=== PATIENT | male | born 1965 | race Hispanic/Latino ===

== ENCOUNTER 2019-11-28 10:06 | Outpatient (CLI) | payer OTHER, SELFPAY ==
--- NOTE | 2019-11-28 11:00 | NEURO_ITS ---
Patient Number: [id number] Impression: # Complains of pain and numbness of hands. # Bilateral Carpal Tunnel Syndrome, right more than left. # Subtle evolving left ulnar neuropathy around the elbow. # Normal needle/EMG exam. Nerve Conduction Studies Anti Sensory Summary Table Stim Site NR Peak (ms) P-T Amp (?V) Site1 Site2 Delta-P (ms) Dist (cm) Leo (m/s) Left Median Anti Sensory (2-3nd Digit) Wrist 3.8 57.8 Wrist 2-3nd Digit 3.8 14.0 37 Wrist 4.1 52.9 Wrist 2-3nd Digit 3.8 14.0 37 Right Median Anti Sensory (2-3nd Digit) Wrist 4.0 45.5 Wrist 2-3nd Digit 4.0 14.0 35 Wrist 4.3 75.8 Wrist 2-3nd Digit 4.0 14.0 35 Left Radial Anti Sensory (Base 1st Digit) Wrist 2.1 34.2 Wrist Base 1st Digit 2.1 0.0 Right Radial Anti Sensory (Base 1st Digit) Wrist 2.7 20.8 Wrist Base 1st Digit 2.7 0.0 Left Ulnar Anti Sensory (5th Digit) Wrist 3.4 49.0 Wrist 5th Digit 3.4 14.0 41 Right Ulnar Anti Sensory (5th Digit) Wrist 3.5 58.2 Wrist 5th Digit 3.5 14.0 40 Motor Summary Table Stim Site NR Onset (ms) O-P Amp (mV) Site1 Site2 Delta-0 (ms) Dist (cm) Leo (m/s) Left Median Motor (Abd Poll Brev) Wrist 4.8 2.3 Elbow Wrist 4.6 27.0 59 Elbow 9.4 3.9 Right Median Motor (Abd Poll Brev) Wrist 4.2 7.5 Elbow Wrist 5.0 27.0 54 Elbow 9.2 4.3 Left Ulnar Motor (Abd Dig Minimi) Wrist 3.1 8.0 A Elbow Wrist 5.8 30.0 52 A Elbow 8.9 7.3 B Elbow Wrist 4.1 23.0 56 B Elbow 7.2 6.5 Right Ulnar Motor (Abd Dig Minimi) Wrist 3.2 6.2 A Elbow Wrist 5.1 29.0 57 A Elbow 8.3 6.1 F Wave Studies NR F-Lat (ms) L-R F-Lat (ms) Left Median (Mrkrs) (Abd Poll Brev) 30.12 0.29 Right Median (Mrkrs) (Abd Poll Brev) 30.41 0.29 Left Ulnar (Mrkrs) (Abd Dig Min) 28.13 0.00 Right Ulnar (Mrkrs) (Abd Dig Min) 28.13 0.00 EMG Side Muscle Nerve Root Ins Act Fibs Amp Dur Recrt Comment Right 1stDorInt Ulnar C8-T1 Nml Nml Nml Nml Nml Right Ext Indicis Radial (Post Int) C7-8 Nml Nml Nml Nml Nml Right Ext Digitorum Radial (Post Int) C7-8 Nml Nml Nml Nml Nml Right BrachioRad Radial C5-6 Nml Nml Nml Nml Nml Right PronatorTeres Median C6-7 Nml Nml Nml Nml Nml Right Abd Poll Brev Median C8-T1 Nml Nml Nml Nml Nml Left 1stDorInt Ulnar C8-T1 Nml Nml Nml Nml Nml Left Ext Indicis Radial (Post Int) C7-8 Nml Nml Nml Nml Nml Left Ext Digitorum Radial (Post Int) C7-8 Nml Nml Nml Nml Nml Left BrachioRad Radial C5-6 Nml Nml Nml Nml Nml Left PronatorTeres Median C6-7 Nml Nml Nml Nml Nml Left Abd Poll Brev Median C8-T1 Nml Nml Nml Nml Nml Right ABD Dig Min Ulnar C8-T1 Nml Nml Nml Nml Nml Left ABD Dig Min Ulnar C8-T1 Nml Nml Nml Nml Nml MTDD
== END 2019-11-28 10:07 | disposition home or self-care (01) ==
PROVIDERS: PCP Family Medicine; Visit Provider Family Medicine
DX: G56.03 Carpal tunnel syndrome, bilateral upper limbs (principal); G56.22 Lesion of ulnar nerve, left upper limb
CPT/HCPCS: 95886; 95911

== ENCOUNTER 2020-04-02 02:03 | Outpatient (CLI) | payer OTHER, SELFPAY ==
[2020-04-02 19:16] LABS: SARS-CoV-2 RNA PCR Negative
== END 2020-04-02 02:04 | disposition home or self-care (01) ==
LOC: ANHCOVIDDT 02:04
PROVIDERS: PCP Family Medicine; Visit Provider Plastic Surgery
DX: Z01.818 Encounter for other preprocedural examination (principal); Z11.59 Encounter for screening for other viral diseases
CPT/HCPCS: 87635; C9803; U0003

== ENCOUNTER 2020-04-04 02:15 | Day surgery (SDC) | payer OTHER, SELFPAY ==
[2020-04-01 15:52] VITALS: BMI 23.3
--- NOTE | 2020-04-04 08:17 | P.HP_ITS ---
H&P: HPI History of Present Illness Chief complaint: Carpal Tunnel Syndrome Narrative: Deirdre Del Rosario is a 55 year old male with B CTS. Dx supported with a NCV within the past year. Review of Systems Constitutional: Constitutional: Reports no additional constitutional complaints ENT: Reports system reviewed and no additional complaints, except as documented Cardiovascular: Cardiovascular: Reports no additional cardiovascular complaints Respiratory: Respiratory: Reports dyspnea on exertion Comments: 30py smoker. Stopped recently. Gastrointestinal: Gastrointestinal: Reports no additional gastrointestinal complaints Musculoskeletal: Musculoskeletal: Reports numbness, Reports radiating pain into limb, Reports stiffness and Reports tingling Integumentary/Breasts: Skin/Breast: Reports system reviewed and no additional complaints, except as docu Neurologic: Reports weakness Allergic/Immunologic: Comments: Allergy to PCN [facility] [place] Social History Social History Smoking packs per day: 1 Smoking cigarettes per day: 20.0 Years smoked: 30 Smoking pack-years: 30.00 Smoking status: Former smoker Tobacco type: cigarettes Additional smoking assessment comments: QUIT SEP 2019 Substance use type: marijuana Last use: 03/31/20 Spiritual care concerns: No Meds Home Medications and Allergies Home Medications Medication Instructions Recorded Confirmed Type albuterol sulfate 90 mcg/actuation 2 puff INHALATION Q4H PRN gm 08/08/19 04/01/20 History aerosol inhaler mirtazapine 7.5 mg tablet 7.5 mg PO HS PRN 08/08/19 04/01/20 History naproxen 500 mg tablet,delayed 500 mg PO BID #60 tablet 01/29/20 04/01/20 Rx release lisinopril 20 mg PO QPM 04/01/20 04/01/20 History sertraline 50 mg PO QPM 04/01/20 04/01/20 History Allergies Allergy/AdvReac Type Severity Reaction Status Date / Time Penicillins Allergy Unknown UNKNOWN- Verified 04/01/20 15:50 OCCURED INFANT Exam Extrem: Other: Difficulty with thumb pronation . Pos. Tinel's sign and Phalen's sign. Assessment and Plan Assessment and plan (1) Carpal tunnel syndrome: Qualifiers: Laterality: bilateral Qualified Code(s): G56.03 - Carpal tunnel syndrome, bilateral upper limbs Code(s): G56.00 - Carpal tunnel syndrome, unspecified upper limb Status: Acute Assessment and Plan: R OCTR today.
[2020-04-04 11:23] VITALS: BP 105/70; PULSE 70; RESP 16; TEMP 36.4; O2SAT 100
--- NOTE | 2020-04-04 12:19 | WPDHPUPDATE1 ---
History and Physical Update Update Date/Time: 04/04/20 12:19 History and Physical has been reviewed, including an updated exam of the patient. There are NO changes in the patient's condition. Risks, benefits, and alternatives have been discussed and questions answered. Patient agrees to proceed with procedure.
[2020-04-04 12:45] VITALS: BP 141/64; PULSE 57; RESP 16; O2SAT 97
--- NOTE | 2020-04-04 12:48 | PM.OP ---
Procedure Note - Brief Procedure Note - Brief Date of procedure: 04/04/20 Pre-op diagnosis: Carpal Tunnel Syndrome Post-op diagnosis: same Procedure performed: R OCTR Anesthesia: local Surgeon: Camilo Payan MD Estimated blood loss (mL): 0 Tourniquet time (min): 0 Drains: No Packing: No Pathology: none sent Complications: No immediate complications Condition: stable Disposition: same day
[2020-04-04 12:55] VITALS: BP 140/66; PULSE 50; RESP 16; O2SAT 98
[2020-04-04] MEDS: LIDO 1%/EPINEPHRINE 1:100,000 20 ML VIAL 10 ML INFILTRATE (12:57)
[2020-04-04] MEDS: BACITRACIN OINTMENT 15 GM TUBE 1 APPLIC TOPICAL (12:57)
[2020-04-04 13:00] VITALS: BP 113/57; PULSE 53; RESP 16; O2SAT 98
[2020-04-04 13:06] VITALS: BP 161/67; PULSE 55
--- NOTE | 2020-04-04 14:39 | PM.PROC ---
Procedure Note - Detailed Date of procedure: 04/04/20 Pre-op diagnosis: Carpal Tunnel Syndrome Post-op diagnosis: same Procedure performed: Right open carpal tunnel release. Description of procedure: The patient was greeted in the operating room, he is scheduled under local anesthetic in no marking had been placed on his right wrist. He was alert and agreed to do the right side. A time-out was held and confirmed. The extremity was prepped and draped in the usual fashion. A marking was placed on the palm to guide the incision, this area was locally in filtrated with 1% lidocaine with epinephrine . Some time was allowed for hemostatic effect. No tourniquet was utilized. The incision was made in the palm as marked. Dissection was carried bluntly through the subcutaneous tissue to the palmar fascia. This and the carpal ligament were incised with a 15. Bard-Gabriel blade opening the canal. With 3 point retraction the ligament was visualized and divided distally and proximally to completely release it. No unusual anatomy was noted. The wound was closed with interrupted 4-0 nylon suture. There was minimal blood loss. The patient is discharged with instructions in wound care and follow-up. The prescription for hydrocodone 5/325 was sent to his pharmacy Surgeon: Camilo Payan MD
== END 2020-04-04 13:25 | disposition home or self-care (01) ==
PROVIDERS: PCP Family Medicine; Visit Provider Plastic Surgery
PROC: (CPT 64721; principal; 2020-04-04 11:45)
DX: G56.01 Carpal tunnel syndrome, right upper limb (principal); Z87.891 Personal history of nicotine dependence
CPT/HCPCS: 64721; A9270

== ENCOUNTER 2020-04-29 01:24 | Outpatient (CLI) | payer OTHER, SELFPAY ==
[2020-04-29 16:16] LABS: SARS-CoV-2 RNA PCR Negative
== END 2020-04-29 01:25 | disposition home or self-care (01) ==
LOC: ANHCOVIDDT 01:25
PROVIDERS: PCP Family Medicine; Visit Provider Plastic Surgery
DX: Z01.812 Encounter for preprocedural laboratory examination (principal); Z11.59 Encounter for screening for other viral diseases
CPT/HCPCS: 87635; C9803; U0003

== ENCOUNTER 2020-05-01 01:11 | Day surgery (SDC) | payer OTHER, SELFPAY ==
[2020-04-17 16:01] VITALS: BMI 23.3
--- NOTE | 2020-04-30 21:14 | HP_ITS ---
DATE OF SERVICE: 05/01/2020 DIAGNOSES: Left carpal tunnel syndrome and evolving left ulnar neuropathy at the elbow. HISTORY: The patient underwent right open carpal tunnel release at [facility] on 04/04/2020. The diagnosis was supported by a nerve conduction test from 11/28/2019, indicating bilateral carpal tunnel syndrome and evolving left ulnar neuropathy at the elbow. ALLERGIES: INDICATES AN ALLERGY TO PENICILLIN. CURRENT MEDICATIONS: Includes albuterol, mirtazapine, naproxen, lisinopril, and sertraline. PAST SURGICAL HISTORY: He has had several surgeries including multiple surgeries on his lower extremities. 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 There is no documented cardiac history. He quit smoking in September of 2019. REVIEW OF SYSTEMS: Indicates arthritis, emphysema, dry eye, hearing loss, and numbness associated with his current complaint. SOCIAL HISTORY: He lives in [place]. He does not list employment. He is to [employer]. He is a patient of Ganesh Ceron. PHYSICAL EXAMINATION: GENERAL: He is alert and cooperative, appearing his stated age. He is 5 feet 5 inches, weighs 140 pounds, no acute distress. HEENT: Unremarkable. CHEST: Clear to auscultation. HEART: Regular rate and rhythm by palpation. ABDOMEN: Soft, nontender. EXTREMITIES: Exam reveals multiple positives including thenar tenderness, trouble flexing his thumb, Tinel's at the wrist, provocative pain in the forearm, Tinel's at the elbow. Wrist compression is positive. ASSESSMENT: Left carpal tunnel syndrome. PLAN: Left open carpal tunnel release under local anesthetic. D I MT: Marium
[2020-05-01 09:12] VITALS: BP 116/60; PULSE 77; RESP 18; TEMP 37.7; O2SAT 100
--- NOTE | 2020-05-01 10:46 | WPDHPUPDATE1 ---
History and Physical Update Update Date/Time: 05/01/20 10:46 History and Physical has been reviewed, including an updated exam of the patient. There are NO changes in the patient's condition. Risks, benefits, and alternatives have been discussed and questions answered. Patient agrees to proceed with procedure.
--- NOTE | 2020-05-01 11:14 | PM.OP ---
Procedure Note - Brief Procedure Note - Brief Date of procedure: 05/01/20 Pre-op diagnosis: Left Carpal Tunnel Syndrome Post-op diagnosis: same Procedure performed: L OCTR Anesthesia: local Surgeon: Camilo Payan MD Estimated blood loss (mL): 2 Drains: No Packing: No Pathology: none sent Complications: No immediate complications Condition: stable Disposition: same day
[2020-05-01 11:15] VITALS: BP 142/86; PULSE 68; RESP 16; O2SAT 100
[2020-05-01 11:25] VITALS: BP 135/55; PULSE 57; RESP 16; O2SAT 100
[2020-05-01] MEDS: LIDO 1%/EPINEPHRINE 1:100,000 20 ML VIAL INFILTRATE (11:26)
[2020-05-01 11:33] VITALS: BP 127/78; PULSE 60; RESP 16; O2SAT 100
[2020-05-01 11:41] VITALS: BP 145/69; PULSE 56; RESP 16
--- NOTE | 2020-05-01 11:45 | PM.PROC ---
Procedure Note - Detailed Date of procedure: 05/01/20 Pre-op diagnosis: Left Carpal Tunnel Syndrome Post-op diagnosis: same Procedure performed: Left open carpal tunnel release Description of procedure: the left wrist was marked in the holding. The patient was taken to the operating room where he was placed supine on the operating table a time-out was held and confirmed. The left extremity was prepped and draped in the usual fashion. The site was locally infiltrated with 1% lidocaine with epinephrine. A total of 10 cc was used eventually the neck is. No tourniquet was utilized. The incision was made in the palm and carried bluntly passed the subcutaneous tissue to the palmar fascia. This and the carpal ligament were incised with a 15. Blade open the canal. Under 3 point retraction the ligament was visualized and divided distally and proximally to completely release it. No unusual anatomy was noted. The wound was closed with interrupted 4-0 nylon suture. The usual bandage was applied NE is discharged from the operating room in stable condition. He is discharged with instructions in wound care and follow-up he has a prescription for hydrocodone 01/27/2025 16. He requested this number because that number was required during his recent last procedure. He tolerated that well without complications. Anesthesia: local Surgeon: Camilo Payan MD
[2020-05-01 12:11] VITALS: BP 152/72; PULSE 50; RESP 16
== END 2020-05-01 12:20 | disposition home or self-care (01) ==
PROVIDERS: PCP Family Medicine; Visit Provider Plastic Surgery
PROC: (CPT 64721; principal; 2020-05-01 10:00)
DX: G56.02 Carpal tunnel syndrome, left upper limb (principal); J44.9 Chronic obstructive pulmonary disease, unspecified; Z87.891 Personal history of nicotine dependence
CPT/HCPCS: 64721; A9270

== ENCOUNTER 2020-09-05 09:35 | Outpatient (CLI) | payer OTHER, SELFPAY ==
--- NOTE | 2020-09-05 09:37 | ECG_ITS ---
Measurements Intervals [place] Rate: 71 P: 68 OH: 164 QRS: 15 QRSD: 105 T: -4 QT: 378 QTc: 412 Interpretive Statements SINUS RHYTHM VENTRICULAR BIGEMINY BORDERLINE R WAVE PROGRESSION, ANTERIOR LEADS BORDERLINE T WAVE ABNORMALITY- INFERIOR LEADS ABNORMAL ECG Electronically Signed On 09-05-2020 10:31:03 ANALYTICAL CLERK by Brendan Yang D.O.
== END 2020-09-05 09:36 | disposition home or self-care (01) ==
PROVIDERS: PCP Family Medicine; Visit Provider Surgery
DX: Z01.818 Encounter for other preprocedural examination (principal); K40.90 Unilateral inguinal hernia, without obstruction or gangrene, not specified as recurrent; I10 Essential (primary) hypertension; R94.31 Abnormal electrocardiogram [ECG] [EKG]
CPT/HCPCS: 36415; 86850; 86900; 86901; 93005

== ENCOUNTER 2020-09-07 00:51 | Outpatient (CLI) | payer OTHER, SELFPAY ==
[2020-09-07 20:16] LABS: SARS-CoV-2 RNA PCR Negative
== END 2020-09-07 00:52 | disposition home or self-care (01) ==
LOC: ANHCOVIDDT 00:51
PROVIDERS: PCP Family Medicine; Visit Provider Surgery
DX: Z01.818 Encounter for other preprocedural examination (principal); Z20.828 Contact with and (suspected) exposure to other viral communicable diseases
CPT/HCPCS: 87635; C9803; U0003

== ENCOUNTER 2020-09-11 00:42 | Day surgery (SDC) | payer OTHER, SELFPAY ==
[2020-09-04 11:11] VITALS: BMI 24.1
--- NOTE | 2020-09-10 14:02 | WPDANESEPPF ---
Anes - Initial Pre Proc Eval Procedure: Operation Date: 09/11/20 13:00 Proposed Procedures p Robotic Assisted Laparoscopic Right Inguinal Hernia Repair with Mesh - Naye Bowden MD Date/Time: 09/10/20 14:02 Surgeon: Naye Bowden MD Pre Op Diagnosis: right inguinal hernia Patient Data Age: 55 Gender: M Height: 1.65 m Weight: 65.77 kg Allergies Allergy/AdvReac Type Severity Reaction Status Date / Time Penicillins Allergy Unknown UNKNOWN- Verified 09/04/20 10:53 OCCURED Home Medications Medication Instructions Recorded Confirmed Type mirtazapine 7.5 mg tablet 7.5 mg PO HS PRN 08/08/19 09/11/20 History lisinopril 20 mg PO QPM 04/01/20 09/11/20 History albuterol sulfate 90 mcg/actuation 2 puff INHALATION Q4H PRN #8.5 gm 05/01/20 09/11/20 Rx aerosol inhaler sertraline 50 mg tablet 50 mg PO QPM #90 tablet 07/15/20 09/11/20 Rx naproxen [EC-Naprosyn] 500 mg PO BID PRN 09/04/20 09/11/20 History Patient hx anesthesia problems: none Family hx anesthesia problems: none [facility] Past Medical History Medical History (Updated 08/19/20 @ 14:24 by Bianca Person) Carpal tunnel syndrome surgery on the R today. 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 Chronic obstructive pulmonary disease Hypertension Osteoarthritis of right knee Surgical History Surgical History H/O carpal tunnel repair Family History Family History Father Heart disease Social History Social History (Updated 08/19/20 @ 13:59 by Jessica Morrison CMA) Smoking packs per day: 1 Smoking cigarettes per day: 20.0 Years smoked: 30 Smoking pack-years: 30.00 Smoking status: Current every day smoker Tobacco type: cigarettes Substance use: current Substance use type: marijuana Last use: 03/31/20 Living arrangements: with family Spiritual care concerns: No Anes - Eval Final PreProcedure Day of Procedure 09/10/20 14:02 Patient weight: normal Heart: regular rate and rhythm Lungs: clear to auscultation and normal air movement Airway: Mallampati scale class II Neurological: alert and oriented Last oral intake: >/= 8 hours ASA classification: III Emergent: no Anesthetic plan: proceed Anesthesia type and monitoring: general ETT and standard monitoring Informed Consent: The patient's anesthetic plan and its attendant risks and benefits were discussed with the patient/family/POA. Questions were solicited and answers provided to the satisfaction of the patient/family/POA.
[2020-09-11] VITALS (7 sets, daily range): BP systolic 113–161; BP diastolic 51–96; PULSE 50–80; RESP 12–16; TEMP 36.1–36.3; O2SAT 94–100
[2020-09-11] MEDS: ACETAMINOPHEN 500 MG TABLET 1000 MG PO (11:36)
[2020-09-11] MEDS: LACTATED RINGERS 1,000 ML 30 ML IV CONT ×3 (12:04→15:36)
[2020-09-11] MEDS: KETOROLAC 15 MG/ML VIAL (*BKC) IV PUSH (12:09)
--- NOTE | 2020-09-11 12:25 | WPDHPUPDATE1 ---
History and Physical Update Update Date/Time: 09/11/20 12:25 History and Physical has been reviewed, including an updated exam of the patient. There are NO changes in the patient's condition. Risks, benefits, and alternatives have been discussed and questions answered. Patient agrees to proceed with procedure.
--- NOTE | 2020-09-11 13:08 | SUR.PREOP ---
pt informed delay of procedure possibly one hour.
[2020-09-11] MEDS: ceFAZolin 2 GM/D5W 50 ML 2 GM/50 ML BAG IVPB (14:06)
[2020-09-11] MEDS: BUPIVACAINE/EPINEPHRINE 0.25% 10 ML VIAL 30 ML INFILTRATE (14:29)
--- NOTE | 2020-09-11 15:33 | PM.PROC ---
Procedure Note - Detailed Date of procedure: 09/11/20 Pre-op diagnosis: right inguinal hernia Post-op diagnosis: same Procedure performed: robotic assisted right inguinal hernia repair Description of procedure: Patient was brought into the operating room and placed in the supine position. After adequate induction of general anesthesia, the patient was prepped and draped in normal sterile fashion. A time-out was then done to verify the patient's identity, as well as the procedure being performed. Began by making a 8 mm incision in the supraumbilical region, a Veress needle was then placed into the peritoneal cavity. CO2 gas was then insufflated and after adequate pneumoperitoneum was achieved, the Veress needle was removed. I then placed an 8 mm trocar through this incision. I then placed the endoscope through this trocar site and under direct visualization placed 2 further 8 mm ports in the right and left mid abdomen. The [employer] robot was then docked to the 3 trocar sites. I then scrubbed out and went to the robotic console. Upon examining the pelvis, it was noted that the patient had a right inguinal hernia. I began by making a preperitoneal flap approximately 6 cm superior to the defect. This flap was carried medially past the umbilical ligaments in laterally to the transversalis. I then began dissection of my medial compartment taking this down to the pubic tubercle. I then began the lateral dissection taking this down to the transversalis fascia. Once these compartments were achieved, I began dissection around the cord structures. It was noted at this point that the patient had a indirect hernia. Patient also had a large lipoma the cord. Using careful dissection, was able to reduce the lipoma cord as well separate the indirect hernia off the cord structures. Once this was adequately done, I went ahead and placed a 15 x 10 piece of [employer] mesh into the abdominal cavity. The mesh was carefully positioned, centering the center of the mesh over the indirect defect. Once this was done, I was very satisfied with our overlap and repair. I then closed the peritoneal flap with a running 2.0 V Lock suture. The abdomen was then desufflated, and all ports were removed. All incisions were then closed with the 4.0 monocryl suture. Dermabond was placed on each wound. The patient tolerated the procedure well, was extubated in the operating room postoperatively, and will now be transferred to the recovery room in stable condition. Implants: 15 x 10 progrip mesh Anesthesia: GETA Surgeon: Naye Bowden MD Estimated blood loss (mL): 5 Drains: No Packing: No Pathology: none sent Complications: No immediate complications Condition: stable Disposition: PACU Findings: indirect RIH c lipoma of the cord
[2020-09-11] MEDS: fentaNYL CITRATE INJ (*CRX) 100 MCG/2 ML VIAL 25 MCG IV PUSH ×2 (15:54→16:00)
[2020-09-11] MEDS: oxyCODONE HCL (*CRX) 5 MG TAB IR PO (16:29)
== END 2020-09-11 17:28 | disposition home or self-care (01) ==
PROVIDERS: PCP Family Medicine; Visit Provider Surgery
PROC: 8E0Y4CZ Robotic Assisted Procedure of Lower Extremity, Percutaneous Endoscopic Approach (ICD-10-PCS; CPT 49650; principal; 2020-09-11 13:00)
DX: K40.90 Unilateral inguinal hernia, without obstruction or gangrene, not specified as recurrent (principal); Z79.51 Long term (current) use of inhaled steroids; M94.20 Chondromalacia, unspecified site; I10 Essential (primary) hypertension; M17.11 Unilateral primary osteoarthritis, right knee; J44.9 Chronic obstructive pulmonary disease, unspecified; F17.210 Nicotine dependence, cigarettes, uncomplicated; F12.90 Cannabis use, unspecified, uncomplicated
CPT/HCPCS: 49650; S2900; A9270; C1781; J0330; J0690; J1100; J1885; J2250; J2405; J2704; J3010; J7120

== ENCOUNTER 2021-05-05 07:47 | Outpatient (CLI) | payer OTHER, SELFPAY ==
--- NOTE | ~2021-05-05 | CT_ITS ---
EXAMINATION: CT abdomen pelvis wo con DATE: 05/05/2021 08:13 INDICATION: Low abdominal pain. Hernia surgery in August. TECHNIQUE: Computed tomography (CT) of the abdomen and pelvis was performed without intravenous contr ast. Automated exposure control and iterative reconstruction technique were employed. Exam dose: 310 .69 mGy-cm total exam DLP. COMPARISON: 12/14/2013 PET/CT scan 10/27/2012 CT pelvis FINDINGS: There is a 5 x 7.5 mm opacity in the posterior right lung base (series 4 image 14) which ma y represent a small area of scarring, atelectasis, or less likely primary or metastatic lung mass. Th is was not present on 12/20/[address] chest follow-up. Normal heart size. No pericardial or pleural effusion. The liver, gallbladder, bile ducts, spleen, pancreas and pancreatic duct are unremarkable. Normal mor phology of the adrenal glands. No urinary tract calculus or hydroureteronephrosis. There is moderate diffuse thickening of the urinary bladder wall. There is prostate enlargement and calcification. There is atherosclerotic calcification of the abdominal aorta and iliac arteries. There is fusiform e ctasia of the distal abdominal aorta, measuring up to 3 cm approximate maximal dimension. No intraperitoneal or retroperitoneal or pelvic mass lesion or adenopathy or ascites. There is scattered diverticula of left and right colon; no CT evidence of diverticulitis. There are multiple small bowel air-fluid levels but no small bowel dilatation. The findings suggest m ild adynamic ileus or enteritis. No bowel obstruction, bowel wall thickening, pneumatosis or intraperitoneal free air is detected. Small fat-containing right inguinal hernia. Hardware is noted in the proximal right femur. No suspicious osteolytic or osteoblastic lesions are noted. IMPRESSION: 5 x 7.5 mm right lower lobe opacity; consider [address] chest follow-up Prostate enlargement and calcification; moderate diffuse thickening of the urinary bladder wall which may be due to outlet obstruction Fusiform up to 3 cm ectasia of distal abdominal aorta Scattered left and right colon diverticula; no evidence of diverticulitis Reviewed, dictated and finalized at [facility]. Reviewed, dictated and finalized at [facility]. IMPRESSION: 5 x 7.5 mm right lower lobe opacity; consider [address] chest fol low-up Prostate enlargement and calcification; moderate diffuse thickening of the urin jacob bladder wall which may be due to outlet obstruction Fusiform up to 3 cm ectasia of distal abdominal aorta Scattered left and right colon diverticula; no evidence of diverticulitis
== END 2021-05-05 07:48 | disposition home or self-care (01) ==
PROVIDERS: PCP Family Medicine; Visit Provider Surgery
DX: R10.31 Right lower quadrant pain (principal)
CPT/HCPCS: 74176

== ENCOUNTER 2021-05-13 08:43 | Outpatient (CLI) | payer OTHER, SELFPAY ==
--- NOTE | ~2021-05-13 | CT_ITS ---
EXAMINATION: CT lung screening DATE: 05/13/2021 09:02 INDICATION: Follow-up pulmonary nodule TECHNIQUE: Computed tomography (CT) of the chest was performed without intravenous contrast. The dose -length product was 92.21 mGy-cm. Automated exposure control and iterative reconstruction technique w ere employed. COMPARISON: CT dated 08/29/2019 FINDINGS: There is a stable 7 mm right lower lobe nodule, image 105. There are calcified mediastinal lymph nodes, consistent with chronic granulomatous disease. Heart size is normal. No significant pleu ral or pericardial effusion. Calcified granulomas right upper lobe. No new pulmonary nodules or wade s. No pneumothorax. No endobronchial lesions. IMPRESSION: 1. Lung-RADS category 2: Benign appearance or behavior. Continue annual screening with noncontrast lo w-dose chest CT in 12 months. Reviewed, dictated and finalized at [facility]. IMPRESSION: 1. Lung-RADS category 2: Benign appearance or behavior. Continue annual screeni ng with noncontrast low-dose chest CT in 12 months.
== END 2021-05-13 08:44 | disposition home or self-care (01) ==
LOC: ANHIMG 08:43
PROVIDERS: PCP Family Medicine; Visit Provider Physician Assistant Medical
DX: Z12.2 Encounter for screening for malignant neoplasm of respiratory organs (principal); Z87.891 Personal history of nicotine dependence
CPT/HCPCS: 71271

== ENCOUNTER → 2021-10-21 02:40 | Outpatient (CLI) | payer OTHER, SELFPAY ==
[2021-10-21 19:08] LABS: SARS-CoV-2 RNA PCR Negative
== END ==
PROVIDERS: PCP Family Medicine; Visit Provider Family Medicine
DX: R05.9 Cough, unspecified (principal); Z20.822 Contact with and (suspected) exposure to COVID-19
CPT/HCPCS: C9803; U0003; U0005

== ENCOUNTER 2022-05-06 09:14 | Outpatient (CLI) | payer MEDICARE, SELFPAY ==
[2022-05-06 09:54] LABS: Basophils Absolute Auto 0.1 K/mm3 (0.0-0.1); Basophils Percent Auto 0.8 % (0.2-1.2); Eosinophils Absolute Auto 0.3 K/mm3 (0-0.3); Hematocrit 44.9 % (42.0-52.0); Hemoglobin 14.9 g/dL (14.0-18.0); Immature Granulocyte Absolute 0.02 K/mm3 (0.00-0.031); Immature Granulocyte Percent A 0.2 % (0-0.5); Lymphocytes Absolute Auto 1.74 K/mm3 (0.9-3.2); Lymphocytes Percent Auto 20.9 % (18.3-44.2); Mean Corpuscular HGB Conc 33.2 g/dl (32-36); Mean Corpuscular Hemoglobin 31.9 pg (26-34); Mean Corpuscular Volume 96.1 fl (80-100); Mean Platelet Volume 10.4 fl (7.4-10.4); Monocytes Absolute Auto 0.8 K/mm3 (0.1-0.6); Monocytes Percent Auto 9.7 % (2.6-8.5); Neutrophils Absolute Auto 5.4 K/mm3 (1.3-6.7); Neutrophils Percent Auto 65.4 % (45.5-73.1); Platelet Count Result 173 k/mm3 (150-375); Red Blood Count 4.67 M/mm3 (4.6-6.20); Red Cell Distribution Width 13.3 % (11.5-14.5); White Blood Count 8.3 K/mm3 (4.5-10.0)
[2022-05-06 10:20] LABS: Alanine Aminotransferase 16 U/L (6-50); Albumin Level 4.6 g/dL (3.5-5.1); Alkaline Phosphatase 71 U/L (38-126); Anion Gap 9 mmol/L (8-16); Aspartate Amino Transferase 27 U/L (17-59); Bilirubin,Total 0.5 mg/dL (0.2-1.3); Blood Urea Nitrogen 18 mg/dL (9-20); Calcium 9.2 mg/dL (8.4-10.2); Carbon Dioxide 24 mmol/L (22-30); Chloride 102 mmol/L (98-107); Cholesterol 213 mg/dL (0-200); Estimated Glomerular Filt Rate > 60; Glucose 102 mg/dL (65-110); HDL Direct 64 mg/dL; Potassium 4.1 mmol/L (3.4-5.0); Sodium 135 mmol/L (137-145); Triglycerides 75 mg/dL (<150)
[2022-05-06 10:31] LABS: LDL Cholesterol Direct 105 mg/dL
[2022-05-06 10:51] LABS: Prostate Specific Antigen 1.3 ng/mL (< OR = 4.0)
== END 2022-05-06 09:15 | disposition home or self-care (01) ==
LOC: ANHLAB 09:20
PROVIDERS: PCP Family Medicine; Visit Provider Physician Assistant
DX: F17.210 Nicotine dependence, cigarettes, uncomplicated (principal); Z79.899 Other long term (current) drug therapy; Z12.5 Encounter for screening for malignant neoplasm of prostate
CPT/HCPCS: 36415; 80053; 80061; 84153; 84443; 85025; G0103

== ENCOUNTER 2022-05-08 13:06 | Outpatient (CLI) | payer MEDICARE, SELFPAY ==
--- NOTE | ~2022-05-08 | CT_ITS ---
EXAMINATION: CT lung screening DATE: 05/08/2022 13:25 INDICATION: Nicotine dependence. Lung cancer screening. TECHNIQUE: Computed tomography (CT) of the chest was performed without intravenous contrast. The dose -length product was 80.13 mGy-cm. Automated exposure control and iterative reconstruction technique w ere employed. COMPARISON: CT dated 05/13/2021 and 08/29/2019 FINDINGS: There are calcified mediastinal lymph nodes, consistent with chronic granulomatous disease. Heart size is normal. No significant pleural or pericardial effusion. There is atherosclerosis of th e aorta and coronary arteries. Slight increased size of 9 mm right lower lobe nodule compared with pr ior studies, although this could be related to technique. There are a few calcified granulomas of the lungs. No pneumothorax. No endobronchial lesions. IMPRESSION: 1. Lung Rads category 4A, suspicious : Recommend follow-up [address] chest or PET/CT scan. Reviewed, dictated and finalized at [facility].
== END 2022-05-08 13:07 | disposition home or self-care (01) ==
PROVIDERS: PCP Family Medicine; Visit Provider Physician Assistant
DX: F17.210 Nicotine dependence, cigarettes, uncomplicated (principal); R91.8 Other nonspecific abnormal finding of lung field
CPT/HCPCS: 71271

== ENCOUNTER → 2022-08-31 12:20 | Outpatient (CLI) | payer MEDICARE, SELFPAY ==
--- NOTE | ~2022-08-31 | XR_ITS ---
XR ribs BI 3V w CXR 2V DATE: 08/31/2022 12:35 INDICATION: Left lateral rib pain TECHNIQUE: PA and lateral chest. 3 views of the right ribs. 3 views of the left ribs. COMPARISON: 05/08/2022 CT lung screening FINDINGS: There is bilateral hyperinflation suggesting obstructive airways disease. No pulmonary infi ltrate or consolidation is detected. Subtle approximately 9 mm pulmonary nodular density is noted in the posteromedial right lung base. Is appears stable in size compared to recent CT lung screening examination of 05/08/2022. Consider CT fo llow-up examination in 3-6 months. Calcified right paratracheal lymph nodes. No pulmonary infiltrate or consolidation, pleural effusion or pulmonary vascular congestion or pneumo thorax. No hilar or mediastinal enlargement. Bilateral old healed rib fractures. No recent rib fracture or bone destruction is noted. IMPRESSION: Millimeter posteromedial basilar right lower lobe pulmonary nodule, appearing relatively stable in si ze since 05/08/2022 CT lung screening examinations. Consider CT lung screening follow-up in 3-6 months . Old pulmonary granulomatous disease Moderate bilateral hyperinflation; no active cardiopulmonary disease Bilateral old healed rib fractures; no recent rib fracture is detected Reviewed, dictated and finalized at [facility]. INTERFACE DEVELOPER IMPRESSION: Millimeter posteromedial basilar right lower lobe pulmonary nodule, appearing r elatively stable in size since 05/08/2022 CT lung screening examinations. Consid er CT lung screening follow-up in 3-6 months. Old pulmonary granulomatous disease Moderate bilateral hyperinflation; no active cardiopulmonary disease Bilateral old healed rib fractures; no recent rib fracture is detected
== END ==
PROVIDERS: PCP Physician Assistant; Visit Provider Physician Assistant
DX: R07.81 Pleurodynia (principal); R91.1 Solitary pulmonary nodule
CPT/HCPCS: 71046; 71110

== ENCOUNTER 2022-10-17 14:26 | Emergency (ER) | payer MEDICARE, MEDICAID, SELFPAY ==
--- NOTE | 2022-10-17 14:37 | ED.URI ---
HPI - URI/Sore Throat General Chief Complaint: Upper Respiratory Infection Stated Complaint: Cough,Shortness of Breath,Congestion Time Seen by Provider: 10/17/22 14:37 Source: patient Mode of arrival: ambulatory Limitations: no limitations History of Present Illness HPI Narrative: Mr. Del Rosario is a 57-year-old male patient presenting to clinic today with complaints of cough, shortness of breath, congestion, and issues with pulse. He reports this has been going on roughly for 2 weeks. He reports that the shortness of breath and the chest pain are getting gradually worse. He complaints of some chest pain over the left anterior chest. Does have a history of COPD, high blood pressure, hyperlipidemia, and is a current smoker. Has nonproductive cough. Reports chest pain/shortness of breath 8/10 currently. States his heart rate has been going from 40's bpm-110's bpms per his watch. MD elicited complaint: sore throat and nasal congestion Related Data Home Medications Medication Instructions Recorded Confirmed fluticasone fur. 100 mcg-umeclid 2 inh inhalation DAILY 10/17/22 10/17/22 62.5 mcg-vilant 25 mcg inhalat.powder (Trelegy Ellipta) Allergies Allergy/AdvReac Type Severity Reaction Status Date / Time Penicillins Allergy Unknown UNKNOWN- Verified 10/17/22 14:54 OCCURED Review of Systems Review of Systems: Pertinent positives per HPI. Patient denies any fever, chills, rash, headache, visual changes, dizziness, chest pain, palpitations, nausea, vomiting, diarrhea, constipation, abdominal pain, or any urinary issues. [facility] Past Medical History Medical History Carpal tunnel syndrome surgery on the R today. 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 Chronic obstructive pulmonary disease History of blood transfusion Hypertension Osteoarthritis of right knee Surgical History Surgical History H/O carpal tunnel repair H/O inguinal hernia repair 09/11/20 robotic assisted right inguinal hernia repair Family History Family History Father Heart disease Grandparent Cancer Social History Social History Social History: Caffeine-daily Smoking packs per day: 1 Smoking cigarettes per day: 20.0 Years smoked: 30 Smoking pack-years: 30.00 Smoking status: Current every day smoker Tobacco type: cigarettes Alcohol intake: current Alcohol use details: Rarely Substance use: current Substance use type: marijuana Last use: 03/31/20 Lack of Transportation: No Lack of Food: Never True Current Housing: I Have Housing Concerned About Future Housing: No Difficulty Paying Gas/Electric Bills: No Difficulty Paying for Meds: No Currently Unemployed: No Education: High School Diploma/GED Difficulty w/ Childcare or Family Care: No Living arrangements: with family Occupation/Education: other Additional occupation/education comments: Disabled Spiritual care concerns: No Comments At the time of my signature, I reviewed and agree with the nursing past medical, surgical, social, and family history. There is no relevant family history pertinent to the patient complaint. Exam Narrative: General: Well-developed, well nourished, anxious Head: Normocephalic, atraumatic Eyes: Pupils equally round and reactive to light bilaterally, EOM intact, sclera and conjunctive clear, no discharge, lids normal Ears: TMs intact and clear, ear canals clear, no drainage, grossly hearing normal. Nose: Nares patent, no discharge, no inflammation, no sinus tenderness. Mouth: Oral pharynx without lesions or masses, good dentition, MMM. Neck: Supple, trachea midline, no enlargement of anterior or posteri
[2022-10-17 14:38] VITALS: BP 132/52; PULSE 72; RESP 18; TEMP 36.7; O2SAT 99
--- NOTE | 2022-10-17 16:03 | ECG_ITS ---
Measurements Intervals [place] Rate: 83 P: 59 RI: 177 QRS: 1 QRSD: 142 T: 15 QT: 391 QTc: 462 Interpretive Statements SINUS RHYTHM ATRIAL PREMATURE COMPLEXES LEFT BUNDLE BRANCH BLOCK BASELINE ARTIFACT- I, II, III ABNORMAL ECG COMPARED TO ECG 09/05/2020 10:12:09 LEFT BUNDLE-BRANCH BLOCK NOW PRESENT Electronically Signed On 10-17-2022 17:27:48 ETIQUETTE TEACHER by Brendan Yang D.O.
== END 2022-10-17 15:08 | disposition short-term general hospital (02) ==
PROVIDERS: Emergency Provider Nurse Practitioner Family; PCP Family Medicine
DX: R06.02 Shortness of breath (principal); I49.3 Ventricular premature depolarization; R07.9 Chest pain, unspecified; F17.210 Nicotine dependence, cigarettes, uncomplicated; J44.9 Chronic obstructive pulmonary disease, unspecified; I10 Essential (primary) hypertension; M17.11 Unilateral primary osteoarthritis, right knee
CPT/HCPCS: 93005; 99215; G0463

== ENCOUNTER 2022-10-17 15:29 | Emergency (ER) | payer MEDICARE, MEDICAID, SELFPAY ==
--- NOTE | ~2022-10-17 | XR_ITS ---
EXAMINATION: XR chest 1V portable DATE: 10/18/2022 03:45 INDICATION: Chest pain. TECHNIQUE: A single frontal view of the chest was obtained. COMPARISON: Chest 2 views 08/31/2022 FINDINGS: A calcified right lung nodule and calcified right hilar and mediastinal lymph nodes are con sistent with old granulomatous disease. There is no pneumonia, pleural effusion, or pneumothorax. The heart size is normal. There are old healed bilateral rib fractures. IMPRESSION: 1. No acute cardiopulmonary disease. Reviewed, dictated and finalized at location A. TARY ANALYST
[2022-10-17 16:20] VITALS: BP 116/61; PULSE 52; RESP 18; TEMP 36.7; O2SAT 96
[2022-10-18] VITALS (17 sets, daily range): BP systolic 128–165; BP diastolic 59–106; PULSE 70–101; RESP 14–25; TEMP 36.5; O2SAT 95–100
--- NOTE | 2022-10-18 00:01 | ECG_ITS ---
Measurements Intervals [place] Rate: 73 P: 60 MN: 172 QRS: 32 QRSD: 145 T: -63 QT: 416 QTc: 459 Interpretive Statements SINUS RHYTHM VENTRICULAR PREMATURE COMPLEX LEFT BUNDLE BRANCH BLOCK BASELINE ARTIFACT- I, III, AVR, AVL, AVF ABNORMAL ECG COMPARED TO ECG 10/17/2022 14:53:57 NO SIGNIFICANT CHANGES Electronically Signed On 10-18-2022 14:04:51 INCINERATOR PLANT GENERAL SUPERVISOR by Brendan Yang D.O.
[2022-10-18] MEDS: LORazepam INJ (*CRX) 2 MG/ML VIAL 0.5 MG IV PUSH (03:21)
[2022-10-18 03:44] LABS: Basophils Absolute Auto 0.1 K/mm3 (0.0-0.1); Basophils Percent Auto 0.9 % (0.2-1.2); Eosinophils Absolute Auto 0.3 K/mm3 (0-0.3); Eosinophils Percent Auto 3.7 % (0-4.4); Hematocrit 44.6 % (42.0-52.0); Hemoglobin 15.4 g/dL (14.0-18.0); Immature Granulocyte Absolute 0.01 K/mm3 (0.00-0.031); Immature Granulocyte Percent A 0.1 % (0-0.5); Lymphocytes Absolute Auto 1.13 K/mm3 (0.9-3.2); Lymphocytes Percent Auto 16.8 % (18.3-44.2); Mean Corpuscular HGB Conc 34.5 g/dl (32-36); Mean Corpuscular Hemoglobin 32.2 pg (26-34); Mean Corpuscular Volume 93.1 fl (80-100); Mean Platelet Volume 10.1 fl (7.4-10.4); Monocytes Absolute Auto 1.1 K/mm3 (0.1-0.6); Monocytes Percent Auto 15.9 % (2.6-8.5); Neutrophils Absolute Auto 4.2 K/mm3 (1.3-6.7); Neutrophils Percent Auto 62.6 % (45.5-73.1); Platelet Count Result 148 k/mm3 (150-375); Red Blood Count 4.79 M/mm3 (4.6-6.20); Red Cell Distribution Width 13.1 % (11.5-14.5); White Blood Count 6.7 K/mm3 (4.5-10.0)
[2022-10-18 03:56] LABS: Chloride 104 mmol/L (98-107)
[2022-10-18 03:59] LABS: Sodium 134 mmol/L (137-145)
[2022-10-18 04:00] LABS: Alanine Aminotransferase 22 U/L (6-50); Albumin Level 4.6 g/dL (3.5-5.1); Alkaline Phosphatase 79 U/L (38-126); Anion Gap 6 mmol/L (8-16); Aspartate Amino Transferase 29 U/L (17-59); Bilirubin,Total 0.5 mg/dL (0.2-1.3); Blood Urea Nitrogen 14 mg/dL (9-20); Calcium 8.7 mg/dL (8.4-10.2); Carbon Dioxide 24 mmol/L (22-30); Estimated Glomerular Filt Rate > 60; Glucose 96 mg/dL (65-110); Lipase 62 U/L (23-300); Magnesium 2.1 mg/dL (1.6-2.3); Potassium 3.7 mmol/L (3.4-5.0)
--- NOTE | 2022-10-18 04:02 | ED.GENADULT ---
HPI - General Adult General Chief complaint: Arrhythmia/Palpitations <Bright Torres MD - Last Filed: 10/18/22 04:04> Stated complaint: palpitations <Bright Torres MD - Last Filed: 10/18/22 04:04> Time Seen by Provider: 10/18/22 02:57 <Bright Torres MD - Last Filed: 10/18/22 04:04> History of Present Illness HPI narrative: Patient 57-year-old gentleman who presents the emergency department with chief complaint of palpitations and chest discomfort and shortness of breath. Patient states that for some time he has been noticing been having a little bit of palpitation and feeling as though his heart is been beating slow and that he has noticed that he has been having some shortness of breath and discomfort in his chest. Patient reports he was seen in urgent care and found to have a left bundle branch block and was sent to the emergency department for evaluation. Patient reports that he has been wearing a heart monitor watch that is showing his heart rates been down into the low 40s. <Bright Torres MD - Last Filed: 10/18/22 04:04> Related Data Home medications: Home Medications Medication Instructions Recorded Confirmed fluticasone fur. 100 mcg-umeclid 2 inh inhalation DAILY 10/17/22 10/17/22 62.5 mcg-vilant 25 mcg inhalat.powder (Trelegy Ellipta) <Bright Torres MD - Last Filed: 10/18/22 04:04> Allergies/adverse reactions: Allergies Allergy/AdvReac Type Severity Reaction Status Date / Time Penicillins Allergy Unknown UNKNOWN- Verified 10/17/22 14:54 OCCURED <Bright Torres MD - Last Filed: 10/18/22 04:04> Review of Systems Review of Systems: A 10 system review of systems was completed on the patient and is negative except for what is stated in the HPI. Nursing and ancillary documentation was reviewed. <Bright Torres MD - Last Filed: 10/18/22 04:04> PMFSH Past Medical History Medical History: Medical History Carpal tunnel syndrome surgery on the R today. 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 Chronic obstructive pulmonary disease History of blood transfusion Hypertension Osteoarthritis of right knee <Bright Torres MD - Last Filed: 10/18/22 04:04> Surgical History Surgical History: Surgical History H/O carpal tunnel repair H/O inguinal hernia repair 09/11/20 robotic assisted right inguinal hernia repair <Bright Torres MD - Last Filed: 10/18/22 04:04> Family History Family History: Family History Father Heart disease Grandparent Cancer <Bright Torres MD - Last Filed: 10/18/22 04:04> Social History Social History: Social History Social History: Caffeine-daily Smoking packs per day: 1 Smoking cigarettes per day: 20.0 Years smoked: 30 Smoking pack-years: 30.00 Smoking status: Current every day smoker Tobacco type: cigarettes Alcohol intake: current Alcohol use details: Rarely Substance use: current Substance use type: marijuana Last use: 03/31/20 Lack of Transportation: No Lack of Food: Never True Current Housing: I Have Housing Concerned About Future Housing: No Difficulty Paying Gas/Electric Bills: No Difficulty Paying for Meds: No Currently Unemployed: No Education: High School Diploma/GED Difficulty w/ Childcare or Family Care: No Living arrangements: with family Occupation/Education: other Additional occupation/education comments: Disabled Spiritual care concerns: No <Bright Torres MD - Last Filed: 10/18/22 04:04> Exam Narrative: GENERAL: Well-appeari
[2022-10-18 04:08] LABS: INR 1.1; NT Pro B Type Natriuretic Pept 654 pg/mL (19.9-100); Partial Thromboplastin Time 29.5 SECONDS (22.3-36.8); Prothrombin Time 13.4 Seconds (11.1-14.7); Troponin I < 0.012 ng/mL (0.000-0.034)
[2022-10-18 04:20] LABS: Influenza A QL RT-PCR Negative (Negative); Influenza B QL RT-PCR Negative (Negative); RSV RNA, RT-PCR Negative (Negative); SARS-CoV-2 RNA PCR Negative
[2022-10-18 04:27] LABS: Procalcitonin 0.1 ng/mL
[2022-10-18 07:04] LABS: Appearance Urine Clear (Clear); Bilirubin Urine Negative (Negative); Blood Urine 1+ (Negative); Color Urine Yellow (Yellow); Glucose Urine UA Negative (Negative); Ketones Urine Negative (Negative); Leukocyte Esterase Ur Negative LEU/UL (Negative); Nitrate Urine Negative (Negative); Protein Urine Negative (Negative); Urobilinogen Urine 0.2 mg/dL (<2.0); pH Urine 5.5 (5.0-9.0)
[2022-10-18 07:18] LABS: Troponin I 0.021 ng/mL (0.000-0.034)
[2022-10-18 07:23] LABS: Mucus Urine Rare /lpf; RBC Urine 0-2 /hpf (0-2); WBC Urine 0-3 /hpf
[2022-10-18 07:24] LABS: Add Urine Microscopic? YES
[2022-10-18] MEDS: LORazepam (*CRX) 0.5 MG TABLET PO (09:13)
--- NOTE | 2022-10-18 09:30 | PC.NURSE ---
up to nurses station requesting to speak with senior quality technician - states her came in by Ambulance yesterday and sent to the , then got to a room and nothing has been done for him, no treatment at all and he has been here for 16 hours , he is wanting to leave and she will take him somewhere else. Dr Mcbride spoke to and told her he will meet her in the room and discuss the plan of care and the care he received while here in the ER.
--- NOTE | 2022-10-18 09:45 | PC.NURSE ---
Pt ready for discharge, nurse walked into the room with DC instructions, pt got agitated and said this was the worse experience, I am not happy with the [facility]. I had to wait for 8h in the waiting room yesterday, and you did not do anything for me I feel the same way when I got here. I want to talk with the doctor. Dr Mcbride made aware.
== END 2022-10-18 10:05 | disposition home or self-care (01) ==
PROVIDERS: Emergency Provider Emergency Medicine; PCP Family Medicine
DX: R00.2 Palpitations (principal); R06.02 Shortness of breath; Z20.822 Contact with and (suspected) exposure to COVID-19; J44.9 Chronic obstructive pulmonary disease, unspecified; I10 Essential (primary) hypertension; M17.11 Unilateral primary osteoarthritis, right knee; F17.210 Nicotine dependence, cigarettes, uncomplicated; I49.3 Ventricular premature depolarization; I44.7 Left bundle-branch block, unspecified
CPT/HCPCS: 36415; 71045; 80053; 81001; 83605; 83690; 83735; 83880; 84145; 84484; 85025; 85610; 85730; 87637; 93005; 96374; 99284; A9270; J2060

== ENCOUNTER 2022-12-01 09:39 | Outpatient (CLI) | payer MEDICARE, MEDICAID, SELFPAY ==
--- NOTE | 2022-12-15 13:33 | WPDHOMESLEEP ---
Sleep Study - Home Unattended Date of Study: 12/01/22 Ordering Provider: Raymundo Lopez MD Interpreting Provider: Anita Eaton, DO Home Sleep Study Type: Watch PAT Height: 1.65 m Weight: 62.596 kg Body Mass Index: 22.9 Neck Circumference (inches): 15 [place]: 7 Reason for Sleep Study Nocturnal gasping, daytime hypersomnia Sleep History The patient is a 57-year-old male with COPD, hypertension, carpal tunnel syndrome, heart palpitations, sick sinus syndrome, Peyronie's disease, chronic hip and knee pain and current tobacco use that had a sleep study ordered by his primary care for evaluation of sleep apnea. The patient frequently awakens from sleep short of breath. He denies awakening at night with heartburn, belching or cough. He denies snoring. He frequently has trouble sleeping when he has a cold. He frequently wakes up gasping for air throughout the night. He frequently has breathing problems at night observed by himself or others. He occasionally sweats excessively at night. He frequently has heart palpitations or irregular heartbeats during the night. He occasionally falls asleep during the day but never while driving. He denies sleep paralysis, cataplexy and hypnagogic / hypnopompic hallucinations. He denies having trouble at school or work due to sleepiness. He denies feeling afraid of going to sleep. He rarely has nightmares. He occasionally remembers his dreams. He occasionally has thoughts racing through his mind. He rarely feels sad or depressed. He occasionally has anxiety. He occasionally has muscular tension. He denies noticing parts of his body jerk. He denies kicking during the night. He denies having crawling and aching feelings in his legs but frequently has leg pain during the night. He frequently grinds his teeth during sleep but never awakens with morning jaw pain. He is frequently bothered by pain during the day and frequently awakened by pain during the night. He frequently wakes up feeling stiff in the morning. He frequently wakes up with sore or achy muscles. He frequently wakes up with pain in the neck, spine and other joints. The patient goes to bed at 10:45 p.m. on both weekdays and weekends. It takes him 10 minutes to fall asleep. He wakes up several times throughout the night for unknown reasons. There are times where he is unable to fall back asleep. He wakes up at 6:00 a.m. on both weekdays and weekends. He typically gets 6 hours of sleep per night. He does not stay in bed after waking up in the morning. He currently lives with his and stepdaughter. He does not consume any caffeinated beverages within 2 hours of bedtime. He denies engaging in physical exercise before bedtime. He denies reading and watching television before falling asleep. He will take naps in the afternoon or the evening and they are refreshing. He drinks coffee in the morning. He currently smokes cigarettes. He denies alcohol and recreational drug use. [facility] Past Medical History Medical History Carpal tunnel syndrome surgery on the R today. 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
[2022-12-15 13:52] VITALS: BMI 22.9
== END 2022-12-04 12:21 | disposition home or self-care (01) ==
LOC: ANHCSM 09:40
PROVIDERS: PCP Family Medicine; Visit Provider Family Medicine
DX: F51.9 Sleep disorder not due to a substance or known physiological condition, unspecified (principal); G47.33 Obstructive sleep apnea (adult) (pediatric)
CPT/HCPCS: 95800

== ENCOUNTER 2023-10-30 11:29 | Outpatient (CLI) | payer MEDICARE, MEDICAID, SELFPAY ==
--- NOTE | ~2023-10-30 | XR_ITS ---
EXAMINATION: XR knee LT 3V DATE: 10/30/2023 11:54 INDICATION: Chondromalacia patella, left knee. TECHNIQUE: 3 views of left knee were obtained. COMPARISON: Left knee radiographs 07/31/2022 FINDINGS: Bone alignment is normal. No fracture. There is mild osteoarthritis of patellofemoral susy rtment. No knee joint effusion. IMPRESSION: 1. Mild left knee osteoarthritis. Reviewed, dictated and finalized at location E. OR SAS DEVELOPER
--- NOTE | ~2023-10-30 | XR_ITS ---
EXAMINATION: XR knee RT 3V DATE: 10/30/2023 11:54 INDICATION: Unilateral posttraumatic osteoarthritis. TECHNIQUE: 3 views of right knee were obtained. COMPARISON: Right knee radiographs 08/24/2017 FINDINGS: There is an old healed fracture of distal femoral metaphysis and diaphysis with internal fi xation with lateral plate and screws. No acute fracture. There is mild tricompartmental osteoarthriti s. No knee joint effusion. IMPRESSION: 1. Mild right knee osteoarthritis. Reviewed, dictated and finalized at location E. BUYER
== END 2023-10-30 11:30 | disposition home or self-care (01) ==
PROVIDERS: PCP Family Medicine; Visit Provider Orthopaedic Surgery
DX: M17.0 Bilateral primary osteoarthritis of knee (principal); M22.42 Chondromalacia patellae, left knee
CPT/HCPCS: 73562

== ENCOUNTER 2024-11-03 09:50 | Outpatient (CLI) | payer MEDICARE, MEDICAID, SELFPAY ==
--- NOTE | ~2024-11-03 | XR_ITS ---
EXAMINATION: XR knee RT min 4V DATE: 11/03/2024 10:18 INDICATION: Unilateral posttraumatic osteoarthritis, right knee. TECHNIQUE: 4 views of right knee including weight-bearing views were obtained. COMPARISON: Right knee radiographs 10/30/2023 FINDINGS: There is an old healed fracture deformity of right femur with internal fixation with latera l plate and screws. No acute fracture. There is mild tricompartmental osteoarthritis. No knee joint e ffusion. IMPRESSION: 1. Mild right knee osteoarthritis. Reviewed, dictated and finalized at location A. ITORY ACCOUNT EXECUTIVE
--- NOTE | ~2024-11-03 | XR_ITS ---
EXAMINATION: XR knee LT min 4V DATE: 11/03/2024 10:18 INDICATION: Unilateral primary osteoarthritis, left knee. TECHNIQUE: 4 views of left knee including weight-bearing views were obtained. COMPARISON: Left knee radiographs 10/30/2023 FINDINGS: Alignment is normal. No fracture. There is mild osteoarthritis of patellofemoral compartmen t characterized by tiny osteophytes. No knee joint effusion. IMPRESSION: 1. Mild left knee osteoarthritis. Reviewed, dictated and finalized at location A. ARCHITECT
--- OUTSIDE RECORDS SUMMARY | 2024-11-03 10:39 | XMS_ITS | Encounter Summary ---
Author Organization [facility] Address [facility]ly [facility] [place] [address] Care Team Providers Care Tester Operator Helper Name Role Phone Michelle Stanley MD Primary Care Provider [phone] Weston Osorio MD Unavailable Encounter Details Date Type Department Care Team (Late st Contact Info) Description 03/31/2024 [place] Message Enc [facility], [facility] [address] [place], [place] [id number] Weston Osorio MD [facility]. [facility] [address], [place] [id number] Jardiance Social History Tobacco Use Types Packs/Day Years Used Date Smoking Tobacco: Former Cigarettes 0.3 15 0 02/27/2008 - 02/26/2023 Smokeless Tobacco: Never Comments:1 cigarette a day Alcohol Use Standard Drinks/Week Comments Not Currently 0 (1 standard drink = 0.6 oz pur e alcohol) OASIS D0700: Social Isolation Answer Da te Recorded Frequency of experiencing loneliness or isolatio n Never 01/18/2023 OASIS A1250: Transportation Answer Date Recorded Lack of Transportation (Medical) No 01/18/2023 Lack of Transportation (Non-Medical) No 01/18/2023 Patient Unable or Declines to Respond No 01/18/2023 OASIS B1300: Health Literacy Answer Mckay e Recorded Frequency of needing help to read materials from doctor or pharmacy Never 01/18/2023 Humiliation, Afraid, Rape, and Kick questionnair e Answer Date Recorded Within the last year, have y ou been afraid of your partner or ex-partner? No 12/25/2022 Within the last year, have y ou been humiliated or emotionally abused in other ways by your partner or ex-partner? No Within the last year, have y ou been kicked, hit, slapped, or otherwise physically hurt by your partner or ex-partner? No 12/25/2022 Within the last year, have y ou been raped or forced to have any kind of sexual activity by your partner or ex-partner? No 12/25/2022 Social Connection and Isolat ion Panel [NHANES] Answer Date Recorded In a typical week, how many times do you talk on the phone with family, friends, or neighbors? More than three times a week 10/19/2022 How often do you get togethe r with friends or relatives? More than three times a week 10/19/2022 How often do you attend caro center or adventist services? Patient declined 10/19/2022 Do you belong to any clubs o r organizations such as buddhism groups, unions, fraternal or athletic groups, or school groups? No 10/19/2022 How often do you attend meet ings of the clubs or organizations you belong to? Never 10/19/2022 Are you , , di vorced, , never , or living with a partner? 10/19/2022 AUDIT-C Answer Date Recorded Q1: How often do you have a drink containing alc ohol? Never 10/19/2022 Q2: How many drinks containi ng alcohol do you have on a typical day when you are drinking? Patient declined 10/19/2022 Q3: How often do you have si x or more drinks on one occasion? Patient declined 10/19/2022 Overall Financial Resource Strain (CARDIA) Answe r Date Recorded How hard is it for you to pa y for the very basics like food, housing, medical care, and heating? Not very hard 12/25/2022 PHQ-2 Answer Date Recorded Patient Health Questionnaire-2 Score 0 12/13/2023 [facility] [place] [facility] Occupat ional Health - Occupational Stress Questionnaire Answer Date Recorded Do you feel stress - tense, restless, nervous, or anxious, or unable to sleep at night because your mind is troubled all the time - these days? Patient declined 10/19/2022 Hunger Vital Sign Answer Date Recorded Within the past 12 months, y ou worried that your food would run out before you got the money to buy more. Never true 12/26/19 Within the past 12 months, t he food you bought just didn't last and you didn't have money to get more. Never true 12/25/2022 PRAPARE - Transportation Answer Date Re corded In the past 12 months, has l ack of transportation kept you from medical appointments or from getting medications? No 11/27 In the past 12 months, has l ack of transportation kept you from meetings, work, or from getting things needed for daily living? No 12/25/2022 Housing Stability Vital Sign Answer Mckay e Recorded In the last 12 months, was t here a time when you were not able to pay the mortgage or rent on time? No 12/25/2022 In the last 12 months, how many places have you lived? 1 12/25/2022 In the last 12 months, was t here a time when you did not have a steady place to sleep or slept in a care home (including now)? No 12/25/2022 Sex and Gender Information Value Date Recorded Sex Assigned at Not on file Legal Sex Male 7:30 PM CDT Gender Identity Not on file Sexual Orientation Not on file documented as of this encounter Functional Status * Are you deaf or do you have serious difficulty hearing Answer Date of Assessment Author Status No 12/25/2022 6:05 AM JESSET Gilberto Greco RN Active * Are you blind or do you have serious difficulty seeing, even when wearing glasses? Answer Date of Assessment Author Status No 12/25/2022 6:05 AM JESSET Gilberto Greco RN Active * Do you have serious difficulty walking or climbing stairs? Answer Date of Assessment Author Status No 12/25/2022 6:05 AM Gilberto Gonzalez RN Active * Do you have difficulty dressing or bathing? Answer Date of Assessment Author Status No 12/25/2022 6:05 AM CDT Gilberto Greco RN Active * Because of a physical, mental, or emotional condition, do you have difficulty doing errands alone such as visiting a doctor's office or shopping? Answer Date of Assessment Author Status No 12/25/2022 6:05 AM CDT Gilberto Greco RN Active documented as of this encounter Mental Status * Because of a physical, mental, or emotional condition, do you have serious difficulty concentrating, remembering, or making decisions? Answer Entry Date Author Status No 12/25/2022 6:05 AM CDT Gilberto Greco RN Active documented in this encounter Progress Notes * Kristin Solis RN - 04/03/2024 8:41 AM CDT Please advise documented in this encounter Plan of Treatment Upcoming Encounters Date Type Department Care Team (Late [facility]) Description 11/06/2024 4:45 PM CIVIL PREPAREDNESS TRAINING OFFICER Allied Health/Nurse Visit [facility], [facility] [address] [place] [address] Weston Osorio MD Three [facility]. [facility] [address] [place] [address] 12/11/2024 8:00 AM CDT Office Visit [facility] Family & Internal Medicine [facility] [id number] [place] [phone] Michelle Stanley [place] [id number] [place] [address]. [address] [place] [address] 01/11/2025 1:00 PM CDT Hospital Encounter [facility] [place] [address] Kelvin Nelson MD 3 [facility] [address] [place] [address] 01/11/2025 1:00 PM CDT - 01/11/2025 1:30 PM CDT Surgery [facility] Endo/[facility] [address] [place] [address] Kelvin Nelson MD [facility] [address] [place] [address] COLONOSCOPY 01/23/2025 9:15 AM CDT Office [facility] [facility] [place] [address] [place] [address] Weston Osorio MD Three [facility]. [place] [address] [place] [address] 02/27/2025 11:40 AM CDT Office Visit [facility] Multispecialty Care - [facility] [address] [facility] [address] [place] [id number] Abilio Sorto DO [facility] [address] [place] [address] Scheduled Procedures Name Priority Associated Diagnoses Date/Ti me COLONOSCOPY History of colon polyps 01/11/2025 1:00 PM CDT documented as of this encounter Goals Goal Patient Goal Type Associated Problems Recent Progress Patient-Stated? Author Health - patient able to perform ADLs independently Lifestyle No Flora Alegre RN documented as of this encounter Visit Diagnoses Not on filedocumented in this encounter Additional Health Concerns Assessment Noted Time PHQ-9 Depression Total Score: 0 12/13/19 24 9:05 AM CDT documented as of this encounter Care Teams Tester Operator Helper Relationship Specialty [place] [address] [place] [address] PCP - General FAMILY PRACTICE 06/14/23 Weston Osorio MD [address] [address] Consulting Physician CARDIOVASCULAR DISEASE 07/25/24 documented as of this encounter
--- OUTSIDE RECORDS SUMMARY | 2024-11-03 10:39 | XMS_ITS | Clinical Summary ---
Author Organization [facility] Address [facility] [place] [address] Care Team Providers Care Veneer Clipper Name Role Phone Michelle Stanley MD Primary Care Provider [phone] Weston Osorio MD Unavailable [phone] Allergies Active Allergy Reactions Criticality Noted Date Comments Penicillins Hives 10/19/2022 Medications psyllium (METAMUCIL) 51.7 % packetIndications :Change in bowel habits Take 1 packet by mouth 2 (two) times daily as needed. Indications: Change in bowel habits Takes at least once per day, potentially a second time. Active aspirin EC (ECOTRIN) 81 MG tabletIndications :Anticoagulant Therapy Take 1 tablet (81 mg total) by mouth daily. 30 tablet 1 023 Active albuterol sulfate HFA 108 (90 Base) MCG/ACT inhalerIndication s:Wheezing Inhale 2 puffs into the lungs every 4 (four) hours as needed for Wheezing or Shortness of breath. Indications: Wheezing 18 g 5 024 Active gabapentin (NEURONTIN) 600 MG tabletIndications :Primary osteoarthritis of both knees,Polyarthral nicolás Take 0.5 tablets (300 mg total) by mouth nightly at bedtime. 15 tablet 5 024 Active Na sulfate-K sulfate-Mg sulfate (SUPREP BOWEL PREP) 17.5-3.13-1.6 GM/177ML SolutionIndicatio ns:History of colon polyps Take 177 mLs by mouth every 12 (twelve) hours. Follow instructions provided by GI office 354 mL 024 Active furosemide (LASIX) 20 MG tablet TAKE 1 TABLET(20 MG) BY MOUTH DAILY 30 tablet 4 024 Active metoprolol succinate ER (TOPROL-XL) 25 MG 24 hr tablet TAKE 1/2 TABLET(12.5 MG) BY MOUTH DAILY 45 tablet 2 024 Active FLUoxetine (PROZAC) 20 MG capsuleIndication s:Anxiety and depression,Insomn ia, unspecified type TAKE 1 CAPSULE(20 MG) BY MOUTH DAILY 90 capsule 025 Active TRELEGY ELLIPTA 100-62.5-25 MCG/ACT AEROSOL POWDER, BREATH ACTIVATEDIndicati ons:COPD (chronic obstructive pulmonary disease) with chronic bronchitis (CMS/HCC HHS/HCC) INHALE 1 PUFF INTO THE LUNGS DAILY 60 each 025 Active warfarin (COUMADIN) 5 MG tabletIndications :anticoagulant Take 5 mg by mouth daily. Take 5 mg daily. Indications: anticoagulant 023 Discontinued(R eorder) FLUoxetine (PROZAC) 20 MG capsuleIndication s:Anxiety and depression,Insomn ia, unspecified type Take 1 capsule (20 mg total) by mouth daily. 90 capsule 3 024 2024 Discontinued TRELEGY ELLIPTA 100-62.5-25 MCG/ACT AEROSOL POWDER, BREATH ACTIVATEDIndicati ons:COPD (chronic obstructive pulmonary disease) with chronic bronchitis (CMS/HCC HHS/HCC) inhale 1 puff into the lungs daily 60 each 6 024 2024 Discontinued Active Problems Problem Noted Date Diagnosed Date History of colon polyps 07/25/2024 Mixed hyperlipidemia 06/14/2024 Anxiety and depression 06/14/2024 Polyarthralgia 06/14/2024 Personal history of colonic polyps 03/10/2024 Aneurysm of ascending aorta without rupture 11/25 COPD (chronic obstructive pu lmonary disease) with chronic bronchitis (CMS/HCC HHS/HCC) 12/13/2023 Former smoker 12/13/2023 Paroxysmal atrial fibrillation (CMS/HCC HHS/HCC) 04/29/2023 Overview (04/29/2023): MDT [id number] implanted 04/26/23 for AF Management. Status post placement of implantable loop record er 04/29/2023 Overview (04/29/2023): THANIA RAJPUT implanted 04/26/23 for AF Management. Nonrheumatic mitral valve regurgitation 11/16/19 Nonrheumatic aortic valve insufficiency 11/16/19 Nonrheumatic aortic valve stenosis 11/16/2022 Dyslipidemia 11/16/2022 Primary hypertension 11/16/2022 Near syncope 10/19/2022 Resolved Problems Problem Noted Date Diagnosed Date Resolved Date Encounter for screening colonoscopy 05/03/2024 05/08/2024 Encounter for screening colonoscopy 05/03/2024 07/10/2024 Encounter for screening colonoscopy 05/03/2024 07/17/2024 Encounters Date Type Department Care Team Description 10/02/2024 4:45 PM FILL MANAGER Allied Health/Nurse [facility], [address] [address] Weston Osorio MD Remote Device Check 08/29/2024 9:40 AM FILL MANAGER Office Visit [facility] Medical Group Multispecialty Care - [address], [address] [place] [address] Abilio Sorto DO Follow Up 08/29/2024 Travel 08/28/2024 4:35 PM FILL MANAGER [facility] [address] [address] Weston Osorio MD Remote Device Check 08/03/2024 7:00 AM FILL MANAGER - 08/03/2024 11:59 PM FILL MANAGER Hospital Encounter [facility] [address] [place] [address] Aiblio Sorto DO Discharge Disposition: Home or Self Care (Routine Discharge) 08/03/2024 Travel from Last 3 Months Immunizations Name Administration Dates Next Due Fluzone (IIV3, Trivalent, 0. 5 ML Prefilled Syringe) 06/14/2024 Fluzone 6 Months+ Quad (0.5 mL Prefilled Syringe) 06/14/2023 Influenza (Generic) 06/25/2022,09/07/2019 Influenza Adult (Generic) 07/09/2016 PFIZER COVID-19 (12+) MRNA, LNP-S, PF, DOROTHY-SUCROSE, 30 MCG/0.3 ML (COMIRNATY) 12/13/2023 PFIZER COVID-19 (ORIGINAL FO RMULATION, PURPLE CAP) mRNA, LNP-S, PF, 30 MCG/0.3 ML DOSE 08/29/2021,01/05/2021,12/10/2020 PFIZER COVID-19 BIVALENT (12 +) mRNA, LNP-S, PF, 30 MCG/0.3 ML DOSE 07/17/2022 Pneumococcal (Prevnar 20) 12/13/2023 Tdap (Generic) 03/13/2015 Family History Medical History Relation Comments Diabetes Brother Heart Disease Brother Heart Disease Father Arthritis Mother Heart murmur Mother Relation Status Comments Brother Alive Father Mother Alive Social History Tobacco Use Types Packs/Day Years Used Date Smoking Tobacco: Some Days Cigarettes 0.3 15 Started: 02/27/2008; Last attempted to quit: 02/26/2023 Smokeless Tobacco: Never Tobacco Cessation:Ready to Q uit: Not Asked; Counseling Given: Yes Comments:1 cigarette a day Alcohol Use Standard [...] week 10/19/2022 How often do you attend chur or restoration services? Patient declined 10/19/2022 Do you belong to any clubs o r organizations such as taoist groups, unions, fraternal or athletic groups, or [...] Recorded Patient Health Questionnaire-2 Score 0 12/13/2023 [facility] [place] of Occupat ional Health - Occupational Stress [...] money to buy more. Never true 12/26/19 23 Within the past 12 months, t he [...] place to sleep or slept in a penitentiary (including now)? No 12/25/2022 Sex and Gender Information Value Date Recorded Sex Assigned at Not on file Legal Sex Male 7:30 PM CDT Gender Identity Not on file Sexual Orientation Not on file Last Filed Vital Signs Vital Sign Reading Time Taken Comments Blood Pressure 131/81 08/29/2024 9:34 AM FILL MANAGER Pulse 72 08/29/2024 9:34 AM FILL MANAGER Temperature 36.6 C (97.8 F) 07/25/2024 10:58 AM CDT Respiratory Rate 16 08/29/2024 9:34 AM FILL MANAGER Oxygen Saturation 98% 08/29/2024 9:34 AM FILL MANAGER ra Inhaled Oxygen Concentration - - Weight 63.5 kg (140 lb) 08/29/2024 9:34 AM FILL MANAGER Height 165.1 cm (5' 5 ) 08/29/2024 9:34 AM FILL MANAGER Body Mass Index 23.3 08/29/2024 9:34 AM FILL MANAGER Plan of Treatment Upcoming Encounters Date Type Department Care Team (Late st Contact Info) Description 11/06/2024 4:45 PM FILL MANAGER Allied Health[facility] [address] [address] Weston Osorio MD Three [facility]. [address] [place] [address] 12/11/2024 8:00 AM CDT Office Visit [facility] Medical [facility] Family & Internal Medicine - [place] [address] [place] [address] [place] [address] [facility] [place], [place] [id number] 01/11/2025 1:00 PM CDT Hospital Encounter [facility] One Day [facility] [place] [address] Kelvin Nelson MD 3 [facility] [address] [place] [address] 01/11/2025 1:00 PM CDT - 01/11/2025 1:30 PM CDT Surgery [facility] Endo/[place] [address] Kelvin Nelson MD 3 [facility] [address] [place] [address] COLONOSCOPY 01/23/2025 9:15 AM CDT Office Visit [facility], [address] [place] [address] Weston Osorio MD Three [facility]. [address] [place] [address] 02/27/2025 11:40 AM CDT Office Visit [facility] Medical Group Multispecialty Care - [facility] [address] [facility] [address] [place] [address] Sorto Earlmireya, DO [address] [place] [address] Scheduled Procedures Name Priority Associated Diagnoses Date/Ti me COLONOSCOPY History of colon polyps 01/11/2025 1:00 PM CDT Health Maintenance Due Date Last Done Comments Annual Physical 1966 Hepatitis C 1981 Zoster Vaccines (1 of 2) 2013 RSV Immunization or 60+ Years (1 - Risk 60-74 years 1-dose series) 2023 COVID-19 Vaccine ( season) 2024 12/13/2023, 07/17/2022, 08/29/2021, Additional history exists PHQ-2 (Physician [place]) 09/27/2024 12/13/2023 DTaP, Tdap and Td Vaccines (2 - Td or Tdap) 03/13/2025 03/13/2015 Colorectal Cancer Screening Colonoscopy (10 Years) 07/18/2034 07/18/2024, 08/16/2017 Pneumococcal Vaccine: Pediatrics (0 to 5 Years) and At-Risk Patients (6 to 64 Years) Completed 12/13/2023 Influenza Adult Completed 06/14/2024, 05/28, 06/25/2022, Additional history exists Meningococcal B Vaccine Aged Out No l onger eligible based on patient's age to complete this topic Meningococcal Vaccine Aged Out No stu kate eligible based on patient's age to complete this topic RSV Immunizations Under 20 Months Aged Out No longer eligible based on patient's age to complete this topic Goals Goal Patient Goal Type Associated Problems Recent Progress Patient-Stated? Author Health - patient able to perform ADLs independently Lifestyle Flora Gillette RN Medical Devices Implanted Type Area Real Estate Coordinator Device Identifier Shelf Expiration Date Model / Serial / Lot Linq Ii-04/26/2023 Implanted:Qty : 1 on 04/26/2023 by Raymundo Pink MD Implantable Loop Recorder RoyaltyShare[employer]ONIC CARDIAC RHYTHM AND HEART FAILURE - DIV M 08/02/2024 [id number] / [id number] / Ring Flor-Ed wards Physio Mitral 32mm - [id number] Implanted:Qty : 1 on 12/24/2022 by Tobias Krause MD at [facility] Ring N/A: Heart [employer] K[employer] 04/14/2027 [id number] / [id number] / Mosaic Ultra 305 Aortic 27mm Implanted:Qty : 1 on 12/24/2022 by Tobias Krause MD at [facility] Valve Implant N/A: Heart [employer] [id number] 06/24/2026 [id number] / [id number] / Suture Sternotomy Kit - [id number] Implanted:Qty : 1 on 12/24/2022 by Roberto Lafleur RNFA at [facility] Wire N/A: Sternum [employer] 06/27/2027 [id number] / / [id number] Description:FIVE WIRES IMPLA NTED Wire Sut 18in Myowr2 7;.5 [place]; Ccs-1 Mfil; Cnv - [id number] Implanted:Qty : 1 on 12/24/2022 by Roberto Lafleur RNFA at [facility] Wire N/A: Sternum A&E Enforcer [employer]Co[employer] 04/27/2027 [id number] / / [id number] Description:TWO WIRES IMPLAN STEPHANIE. Procedures Procedure Name Priority Date/Time Associated Diagnosis Comments COLONOSCOPY GENERIC (SCAN ORDER) 08/16/2017 from Last 3 Months or Most Recently Relevant to Health Maintenance Results * COLONOSCOPY GENERIC (SCAN ORDER) (08/16/2017) 08/16/2017 [facility] Scanned SCANNING Final Resu lt from Last 3 Months or Most Recently Relevant to Health Maintenance Insurance MEDICAID [facility] Advance Directives * Full Code (Latest Code Status on File) Date Activated Date Inactivated Comments 01/02/2023 11:14 PM 04/26/2023 1:38 PM * Full Code Date Activated Date Inactivated Comments 12/24/2022 2:53 PM 12/31/2022 2:00 PM * Full Code Date Activated Date Inactivated Comments 11/23/2022 8:59 AM 11/23/2022 2:53 PM * Full Code Date Activated Date Inactivated Comments 10/19/2022 5:31 PM 10/20/2022 5:34 PM Care Teams Veneer Clipper Relationship Specialty [place] [address] [facility] [address] [address] PCP - General FAMILY PRACTICE 06/14/23 Weston Osorio MD [address] [address] Consulting Physician CARDIOVASCULAR DISEASE 07/25/24
--- OUTSIDE RECORDS SUMMARY | 2024-11-03 10:39 | XMS_ITS | Encounter Summary ---
Author Organization [facility] Address [facility] [place] [address] Care Team Providers Care Automobile Sales Consultant Name Role Phone Michelle Stanley MD Primary Care Provider [phone] Weston Osorio MD Unavailable [phone] Encounter Details Date Type Department Care Team (Late st Contact Info) Description 04/28/2024 [email or web address] Message Enc [facility] Medical Group General Surgery [address], [address] [place] [address] Marcial Garrison MD [address] [address] Scheduled colonoscopy Social History Tobacco Use Types Packs/Day Years Used Date Smoking Tobacco: Some Days Cigarettes 0.3 15 Started: 02/27/2008; Last attempted to quit: 02/26/2023 Smokeless Tobacco: Never Comments:1 cigarette a [...] How often do you attend chur or jehovah's witness services? Patient declined 10/19/2022 Do you belong to any clubs o r organizations such as quaker groups, unions, fraternal or athletic groups, or [...] Recorded Patient Health Questionnaire-2 Score 0 12/13/2023 [place] of Occupat ional Health - Occupational Stress [...] place to sleep or slept in a chcf (including now)? No 12/25/2022 Sex and Gender [...] Greco RN Active * Do you have difficulty [...] Greco RN Active documented in this encounter Plan of Treatment Upcoming Encounters Date Type Department Care Team (Late st Contact Info) Description 11/06/2024 4:45 PM GIFT MANAGER Allied Health[facility] [address] [place] [address] Weston Osorio MD Three [facility]. [facility] [address] [place] [address] 12/11/2024 8:00 AM CDT Office Visit [facility] Medical Group Family & Internal Medicine [place] [phone] [place] Stanley [place] [id number] [place] [address]. [address] [place], [place] [phone] 01/11/2025 1:00 PM CDT Hospital Encounter [facility] [place] [address] Kelvin Nelson MD 3 [facility] [address] [place] [address] 01/11/2025 1:00 PM CDT - 01/11/2025 1:30 PM CDT Surgery [facility]GI [facility] [place] [address] Kelvin Nelson MD 3 [facility] [address] [place] [address] COLONOSCOPY 01/23/2025 9:15 AM CDT [facility] [address] [place] [address] Weston Osorio MD Three [facility]. [address] [place] [address] 02/27/2025 11:40 AM CDT Office Visit [facility] Medical Group Multispecialty Care - [facility] 3 [facility] [address] [place] [address] Abilio Sorto DO 3 [facility] [address] [place] [address] Scheduled Procedures Name Priority Associated Diagnoses Date/Ti me COLONOSCOPY History of colon polyps 01/11/2025 1:00 PM CDT documented as of this encounter Goals Goal Patient Goal Type Associated Problems Recent Progress Patient-Stated? Author Health - patient able to perform ADLs independently Lifestyle Flora Gillette RN documented as of this encounter Visit Diagnoses Not on filedocumented in this encounter Additional Health Concerns Assessment Noted Time PHQ-9 Depression Total Score: 0 12/13/19 24 9:05 AM CDT documented as of this encounter Care Teams Automobile Sales Consultant Relationship Specialty [place] [address] [address] [place] [address] PCP - General FAMILY PRACTICE 06/14/23 Weston Osorio MD Three [facility]. [address] [place] [address] Consulting Physician CARDIOVASCULAR DISEASE 07/25/24 documented as of this encounter
== END 2024-11-03 09:51 | disposition home or self-care (01) ==
PROVIDERS: PCP Family Medicine; Visit Provider Orthopaedic Surgery
DX: M17.0 Bilateral primary osteoarthritis of knee (principal); M17.31 Unilateral post-traumatic osteoarthritis, right knee
CPT/HCPCS: 73564